=== PATIENT | female | born 1990 | race American Indian/Alaskan Native ===

== ENCOUNTER 2017-04-21 11:10 | Emergency (ER) | payer MEDICAID, OTHER ==
[2017-04-21 11:31] VITALS: BP 125/56
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
== END 2017-04-21 12:53 | disposition home or self-care (01) ==
LOC: ED 11:10
DX: S16.1XXA Strain of muscle, fascia and tendon at neck level, initial encounter (principal); M62.838 Other muscle spasm; J45.909 Unspecified asthma, uncomplicated; V49.49XA Driver injured in collision with other motor vehicles in traffic accident, initial encounter; Y93.89 Activity, other specified; Y92.89 Other specified places as the place of occurrence of the external cause; Y99.8 Other external cause status
CPT/HCPCS: 99282

== ENCOUNTER 2017-06-14 11:18 | Emergency (ER) | payer SELFPAY ==
[2017-06-14 11:26] VITALS: BP 106/63
--- NOTE | 2017-06-14 12:07 | Emergency Department Report ---
ED Dysuria HPI - HPI Chief Complaint: Urogenital-Female Stated Complaint: DISCHARGE VAGINA, ASTHMA Time Seen by Provider: 06/14/17 11:30 Duration: 1 Y HX VAG DC "THEY KEEP GIVING ME CREAM AND IT AINT WORKING." Severity: Mild Symptoms: Dysuria: No, Frequency: No, Suprapubic Pain: No, Flank Pain: No, Fever : No, Hematuria: No, Abdominal Pain: No, Previous UTI's: No ED Review of Systems ROS: Stated complaint: DISCHARGE VAGINA, ASTHMA Other details as noted in HPI Comment: All other systems reviewed and negative Respiratory: wheezing, other (ASTHMA) Genitourinary: discharge, other (LMP END OF NOV) Skin: other (BUMP ON THIGH) ED Past Medical Hx - Past Medical History Hx Asthma: Yes - Surgical History Hx Breast Surgery: Yes (reduction) - Social History Smoking Status: Never Smoker Substance Use Type: None - Medications Home Medications: Home Medications Medication Instructions Recorded Confirmed Last Taken Type Fluconazole [Diflucan TAB] 150 mg PO ONCE #1 tablet 06/14/17 Unknown Rx metroNIDAZOLE [Flagyl] 500 mg PO Q12HR #20 tab 06/14/17 Unknown Rx Dysuria Exam - Exam General: Vital signs noted. No distress. Alert and acting appropriately. Exam: Yes Moist Mucous Membranes, No CVA Tenderness, No Abdominal Tenderness, No Rigidity or Guarding Exam: ABD SNT. NO CVA TENDERNESS. NO FEVER. NO ABD PAIN. DYSURIA W A/C VAG DC. ASTHMA ON ALB AND ATROVENT. 1 SEX PARTNER. NON TOXIC NON ILL APPEARING ED Course Vital Signs 06/14/17 11:24 Temperature 98.5 F Pulse Rate 88 Respiratory 20 Rate Blood Pressure 106/63 O2 Sat by Pulse 99 Oximetry - Reevaluation(s) Reevaluation #1: 06/14/17 12:53 TO ER W DYSURIA AND VAG DC GIVEN HX WILL TX EMPIRACALLY GC P VSS DC HOME W OBGYN FOLLOW UP ED Medical Decision Making - Medical Decision Making SEE NOTE - Differential Diagnosis RO UTI V STD Critical care attestation.: If time is entered above; I have spent that time in minutes in the direct care of this critically ill patient, excluding procedure time. ED Disposition Clinical Impression: Asthma, Vaginitis, Bacterial vaginitis, UTI (urinary tract infection) Disposition: DC-01 TO HOME OR SELFCARE Is pt being admited?: No Does the pt Need Aspirin: No Condition: Stable Instructions: Bacterial Vaginosis (ED), Asthma (ED), Vaginitis (ED) Additional Instructions: SAFE SEX Prescriptions: Fluconazole [Diflucan TAB] 150 mg PO ONCE #1 tablet metroNIDAZOLE [Flagyl] 500 mg PO Q12HR #20 tab Referrals: INGRID HERNANDEZ MD [Referring] - 3-5 Days RENE RENNER MD [Staff Physician] - 3-5 Days Forms: STI Treatment and Prevention Time of Disposition: 12:06
[2017-06-14 12:25] LABS: Bacteria,Urine 1+ /HPF (Negative); Bilirubin,Urine NEG (Negative); Blood,Urine NEG (Negative); Ketones,Urine NEG (Negative); Leukocyte Esterase,Urine LG (Negative); Mucus,Urine 3+ /HPF; Nitrite,Urine NEG (Negative); Protein,Urine <15 mg/dL mg/dL (Negative); Urobilinogen,Urine < 2.0 mg/dL (<2.0)
[2017-06-14] MEDS ORDERED: ROCEPHIN IM ONE (12:49)
[2017-06-14] MEDS ORDERED: XYLOCAINE 1% MPF 5 mL INFILTRATI ONE (12:49)
[2017-06-14] MEDS ORDERED: ZITHROMAX PO ONE (12:49)
== END 2017-06-14 13:08 | disposition home or self-care (01) ==
LOC: ED 11:18
DX: N39.0 Urinary tract infection, site not specified (principal); N76.0 Acute vaginitis; J45.909 Unspecified asthma, uncomplicated
CPT/HCPCS: 81001; 81025; 87210; 87591; 96372; 99283; J0696